=== PATIENT | female | born 1950 | race American Indian/Alaskan Native ===

== ENCOUNTER 2017-02-13 07:11 | Outpatient (CLI) | payer MEDICARE ==
--- NOTE | 2017-02-13 07:47 | Mammography Report ---
BILATERAL MAMMOGRAM: FINDINGS: The breast tissue is heterogeneously dense, which could obscure detection of small masses (approximately 50%-75% glandular). No mass, distortion, suspicious calcification, or skin change is seen. No significant change when compared to exams dating back to 2015. CAD was utilized. IMPRESSION: Negative mammogram. There is no mammographic evidence of malignancy. RECOMMENDATION: Follow-up per ACS guidelines. BI-RADS CATEGORY: 1 = Negative ACR BI-RADS MAMMOGRAPHIC CODES: 0 = Needs additional imaging evaluation; 1 = Negative; 2 = Benign; 3 = Probably benign; 4 = Suspicious; 5 = Malignant; 6 = Known biopsy-proven malignancy COMMENT: 1. Dense breast tissue, i.e., adenosis, fibrocystic changes, etc., may obscure an underlying neoplasm. 2. Approximately 10% of cancers are not detected with mammography. 3. A negative mammography report should not delay biopsy if a clinically suspicious mass is present. COMMENT: Patient follow-up letters are generated in [employer].
== END 2017-02-13 07:12 | disposition home or self-care (01) ==
LOC: MAMMO 07:11
PROVIDERS: ATTEND Internal Medicine
DX: Z12.31 Encounter for screening mammogram for malignant neoplasm of breast (principal)
CPT/HCPCS: 77067; G0202

== ENCOUNTER 2018-05-31 11:41 | Outpatient (CLI) | payer MEDICARE ==
--- NOTE | 2018-06-01 00:59 | XRay Report ---
PROCEDURE: XR HAND BILAT 3+V TECHNIQUE: Right hand radiographs, PA, lateral, and oblique views. HISTORY: M19.249 SECONDARY OSTEOARTHRITIS UNSPECIFIED HANDS COMPARISONS: None . FINDINGS: Fracture (s) and/or Dislocation(s): None . Alignment: Normal . Joint space(s): Mild narrowing of the joint spaces. . Soft tissues: Normal . Bone mineralization: Normal . Foreign bodies: None . IMPRESSION: There is no evidence of an acute fracture or dislocation. Mild arthritis . This document is electronically signed by Nell Sy DO., June 01 2018 12:57:17 AM ET
== END 2018-05-31 11:42 | disposition home or self-care (01) ==
LOC: XRAY 11:41
PROVIDERS: ATTEND Internal Medicine
DX: M19.042 Primary osteoarthritis, left hand (principal); M19.041 Primary osteoarthritis, right hand

== ENCOUNTER 2018-08-20 08:00 | Outpatient (CLI) | payer MEDICARE ==
--- NOTE | 2018-08-20 08:41 | Mammography Report ---
RIGHT DIGITAL DIAGNOSTIC MAMMOGRAM with CAD: 08/20/18 08:00:00 CLINICAL: Followup of a probably benign upper-outer intraparenchymal lymph node. COMPARISON:03/14/18, 02/15/18 and 02/13/17 FINDINGS: A stable 7 mm right upper outer benign intraparenchymal lymph node. It has not changed since 02/13/17 No mass, architectural distortion or suspicious calcifications. IMPRESSION: No mammographic evidence of malignancy. BI-RADS CATEGORY: 2 - - Benign RECOMMENDATION: Return to routine mammographic screening. COMMENT: 1. Dense breast tissue, i.e., adenosis, fibrocystic changes, etc., may obscure an underlying neoplasm. 2. Approximately 10% of cancers are not detected with mammography. 3. A negative mammography report should not delay biopsy if a clinically suspicious mass is present. COMMENT: Patient follow-up letters are generated by our [employer] application.
== END 2018-08-20 08:01 | disposition home or self-care (01) ==
LOC: SPVWC 08:00
PROVIDERS: ATTEND Internal Medicine
DX: R92.8 Other abnormal and inconclusive findings on diagnostic imaging of breast (principal)

== ENCOUNTER 2021-01-14 10:13 | Outpatient (CLI) | payer MEDICARE ==
--- NOTE | 2021-01-14 12:24 | XRay Report ---
Sacrum/coccyx, 3 views HISTORY: Sacrococcygeal disorders, not elsewhere classified COMPARISON: None available. FINDINGS: Mild bilateral SI joint osteoarthritis. There is no osseous fusion or erosions identified. No acute fracture or malalignment. Signer Name: Hany Mace MD Signed: 01/14/2021 12:20 PM Workstation Name: [id number]
--- NOTE | 2021-01-14 12:26 | XRay Report ---
Lumbar spine, 3 views HISTORY: Low back pain, unspecified COMPARISON: None FINDINGS: There are questionable pars defects at L4 with grade 1 anterolisthesis of L4 on L5. Lumbar spinal alignment is otherwise preserved. Mild multilevel disc space height loss, greatest at L4-L5. T here is also moderate lower lumbar facet arthropathy. Vertebral body heights are intact. No evidence of fracture. IMPRESSION: Grade 1 anterolisthesis of L4 on L5 with questionable pars defects. Lower lumbar spondylo sis. No evidence of acute abnormality. Signer Name: Hany Mace MD Signed: 01/14/2021 12:22 PM Workstation Name: [id number]
== END 2021-01-14 10:14 | disposition home or self-care (01) ==
LOC: XRAY 10:13
PROVIDERS: ATTEND Clinical Nurse Specialist Adult Health
DX: M43.16 Spondylolisthesis, lumbar region (principal); M47.898 Other spondylosis, sacral and sacrococcygeal region
CPT/HCPCS: 72100; 72220